=== PATIENT | male | born 1995 | race Caucasian/White ===

== ENCOUNTER 2022-09-12 10:01 | Emergency (ER) | payer OTHER, SELFPAY ==
[2022-09-12 10:09] VITALS: BP 129/59; PULSE 75; RESP 18; TEMP 36.9; O2SAT 99; BMI 32.6
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
== END 2022-09-12 12:00 | disposition home or self-care (01) ==
PROVIDERS: Emergency Provider Student in an Organized Health Care Education/Training Program
DX: H93.12 Tinnitus, left ear (principal); H92.02 Otalgia, left ear
CPT/HCPCS: 99282

== ENCOUNTER 2022-11-02 06:04 | Emergency (ER) | payer OTHER, SELFPAY ==
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
[2022-11-02 06:08] VITALS: BP 116/78; PULSE 73; RESP 18; TEMP 36.7; O2SAT 97; BMI 33.2
[2022-11-02 06:39] VITALS: BP 105/63; PULSE 72; RESP 17; TEMP 37.1; O2SAT 97
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
[2022-11-02] MEDS: Ibuprofen 800 MG TABLET PO (07:18)
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
== END 2022-11-02 08:26 | disposition home or self-care (01) ==
PROVIDERS: Emergency Provider Emergency Medicine; PCP Internal Medicine
DX: S13.4XXA Sprain of ligaments of cervical spine, initial encounter (principal); M25.512 Pain in left shoulder; M54.2 Cervicalgia; R51.9 Headache, unspecified; R07.89 Other chest pain; V43.52XA Car driver injured in collision with other type car in traffic accident, initial encounter; Y93.9 Activity, unspecified; Y92.410 Unspecified street and highway as the place of occurrence of the external cause; Y99.9 Unspecified external cause status
CPT/HCPCS: 70450; 71046; 72125; 73030; 99283

== ENCOUNTER 2023-10-02 12:52 | Outpatient (REF) | payer OTHER, SELFPAY ==
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
== END 2023-10-02 12:53 | disposition home or self-care (01) ==
LOC: HO.NEURO 12:52
PROVIDERS: PCP Internal Medicine; Visit Provider Nurse Practitioner Family
DX: M54.2 Cervicalgia (principal); R29.898 Other symptoms and signs involving the musculoskeletal system
CPT/HCPCS: 95885; 95910

== ENCOUNTER → 2023-10-02 12:57 | Outpatient (BNV) | payer OTHER, SELFPAY | PROVIDERS: PCP Internal Medicine; Visit Provider Physical Medicine & Rehabilitation | DX: R94.131 Abnormal electromyogram [EMG] (principal) | CPT/HCPCS: 95885; 95910 ==

== ENCOUNTER 2024-10-15 03:26 | Emergency (ER) | payer MEDICAID, SELFPAY ==
--- NOTE | 2024-10-15 | ECG_ITS ---
Test Reason : N/V Blood Pressure : / mmHG Vent. Rate : 063 BPM Atrial Rate : 063 BPM P-R Int : 144 ms QRS Dur : 110 ms QT Int : 402 ms P-R-T Axes : 040 021 005 degrees QTc Int : 411 ms Normal sinus rhythm with sinus arrhythmia Normal ECG No previous ECGs available Referred By: Generic ED Physician Electronically Signed By:IDA ILTTLE MD
[2024-10-15 03:28] VITALS: BP 127/81; PULSE 85; RESP 18; TEMP 36.9; O2SAT 100; BMI 32.8
--- NOTE | 2024-10-15 04:53 | PC.NURSE ---
pt requesting to leave, refusing lab work
== END 2024-10-15 04:58 | disposition left against medical advice (07) ==
PROVIDERS: Emergency Provider Emergency Medicine; PCP Internal Medicine
DX: R11.2 Nausea with vomiting, unspecified (principal); M25.512 Pain in left shoulder; H81.09 Meniere's disease, unspecified ear; Z53.21 Procedure and treatment not carried out due to patient leaving prior to being seen by health care provider
CPT/HCPCS: 93005; 99281; 99283

== ENCOUNTER → 2024-10-15 04:00 | Outpatient (BNV) | payer MEDICAID, SELFPAY | PROVIDERS: Emergency Provider Emergency Medicine; PCP Internal Medicine; Visit Provider Internal Medicine Cardiovascular Disease | DX: R11.2 Nausea with vomiting, unspecified (principal) | CPT/HCPCS: 93010 ==

== ENCOUNTER 2025-06-22 07:56 | Outpatient (AMB) | payer MEDICAID, SELFPAY ==
--- OUTSIDE RECORDS SUMMARY | 2025-06-22 08:01 | XMS_ITS | Clinical Summary ---
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 He was due for a 6-month follow-up image, due to multiple issues and postpone, he comes in today to review findings. No new issues with vision or headache, although he does get left-sided headaches associated with his M ni re's disease. He states in 2020 he started having severe symptoms for M ni re's disease, worked a welding job with loud noises, was vomiting by the end of the day, was getting severe migraines and room spinning. He quit the job which help somewhat but he still has symptoms, at times gets drop attacks where he is sweating and feels unstable. He has in his left ear. He saw ENT in 2022, has follow-up appointment scheduled for May 16. Otherwise no new symptoms noted. 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 Dr. Swift reviewed his imaging, I reviewed imaging with patient on the computer as well. We will get 1 year follow-up brain MRI with without contrast, I asked patient to call if he has any new or concerning symptoms. I also asked that he have ENT notes faxed to the office next month. He has not seen ophthalmology, I recommended he try call [facility] for regular eye exams. All questions answered. Severe obesity (BMI 35.0-39. 9) with comorbidity ([facility] V24, [facility] V28) 07/09/2019 Marijuana abuse 12/10/2015 ADD (attention deficit disorder) 07/20/2013 Overview (01/03/2025): Depression 03/25/2007 Resolved Problems Problem Noted Date Diagnosed Date Resolved Date Failed hearing screening 08/12/2010 Overview (10/14/2024): 10-10 appt audiological assessment mild sensorineural hearing loss below 1000hz in L ear retest recommended with otologic consultation appt 11-[address] Ruff /genetic testing negative /CT Scan negative [id number] ENT- audiogram 6 weeks and if stable every 6 months No amplification at this time Encounters Date Type Department Care Team Description 06/07/2025 Telephone Orthopedic Surgery [facility] [address] [place] [address] [address] [place] [phone] Sugar Cano PA 05/30/2025 Telephone Adult Medicine [address] [phone] Barbara Jordan MD 05/24/2025 Telephone Adult Medicine [address] [phone] Barbara Jordan MD 05/18/2025 Telephone Adult Medicine [address] [phone] Barbara Jordan MD 05/11/2025 8:15 AM EDT Office Visit Adult Medicine [address] [phone] Barbara Jordan MD Tinnitus of left ear (Primary Dx); H/O unilateral orchiectomy; Other fatigue 04/28/2025 1:00 PM EDT Consult Orthopedic Surgery [facility] [address] [facility] [address] [place] [phone] Sugar Cano PA Cubital canal compression syndrome, left (Primary Dx); S/P anterior Bankart repair of left shoulder; Chronic left shoulder pain 04/18/2025 3:15 PM EDT Office Visit Neurosurgery [facility] [address] [facility] [address] [place] [phone] Grisel York PA Pituitary cyst ([facility] V24) (Primary Dx) 04/17/2025 Telephone Adult Medicine [address] [phone] Barbara Jordan MD 03/28/2025 Telephone Adult Medicine [address] [phone] Jennifer Mckeon MA 03/22/2025 Telephone Neurosurgery [facility] [address] [phone] Debbi Kelly MA from Last 3 Months Immunizations Name Administration Dates Next Due DTP 03/07/1997, 6,1995,10/21 DTaP (Infanrix) 6wks to less than 7yo 08/27/1999 OVjD-LEY-ICS (Pentacel) 2mo to less than 5yo 11/29/1996,02/19/1996,1995,10/21 HPV, Quadrivalent 11/01/2012 Hepatitis B Pediatric (Enger ix B; Recombivax HB) to less than 20 yo 05/20/1996,1995,1995 IPV Inactivated polio (Ipol) 6wks and older 1995 Influenza trivalent, 0.5mL, preservative free (Fluarix; FluLaval; Fluzone) ages 6mo and older (Afluria) 3 years and older 07/29/2011,06/27/2010,06/26/2009 MMR, measles mumps and rubel la Live (Priorix; M-M-R II) 12mo and older 08/27/1999,11/29/1996 Meningococcal MCV4P 03/27/2008 OPV 08/27/1999,02/19/1996,1995 PPD Test 05/20/1996 Tdap Tetanus diptheria acell ular pertussis (Boostrix; Adacel) 7yo and older 03/25/2007 Varicella live (Varivax) 12m o and older 03/27/2008,08/12/1996 Surgical History Surgery Date Site/Laterality Comments TYMPANOSTOMY TUBE PLACEMENT 12/10/1997 SHOULDER SURGERY 07/09/2023 Left : left shoulder, SLAP repair ORCHIECTOMY Left torsion OTHER SURGICAL HISTORY Intestinal surgery Medical History Medical History Date Comments Intussusception ([facility] V24 , [facility] V28) surgery ADD (attention deficit disorder) 07/20/2013 10-13 Combined [facility] Behavioral Health Provider Susy Freeman Cannabis abuse Depression 03/25/2007 History of torsion of testis 09/03/2016 Lef t orchiectomy Family History Medical History Relation Name Comments Diabetes Maternal Grandfather Diabetes Paternal Grandfather Relation Name Status Comments Father Alive Maternal Grandfather Mother Alive Paternal Grandfather Social History Tobacco Use Types Packs/Day Years Used Date Smoking Tobacco: Every Day Cigarettes 0.3 9.4 Started: 10/12/2013; Last attempted to quit: 02/23/2023 Smokeless Tobacco: Never Tobacco Cessation:Ready to Q uit: Not Asked; Counseling Given: Not Answered Alcohol Use Standard Drinks/Week Comments No 0 (1 standard drink = 0.6 oz pur e alcohol) Sex and Gender Information Value Date Recorded Sex Assigned at Not on file Legal Sex Male 4:51 AM EST Gender Identity Not on file Sexual Orientation Not on file Obstetrics History Last Filed Vital Signs Vital Sign Reading Time Taken Comments Blood Pressure 104/58 05/11/2025 8:06 AM EDT Pulse 53 05/11/2025 8:06 AM EDT Temperature 35.9 C (96.6 F) 05/11/2025 8:06 AM EDT Respiratory Rate 16 05/11/2025 8:06 AM EDT Oxygen Saturation 97% 05/11/2025 8:06 AM EDT Inhaled Oxygen Concentration - - Weight 104 kg (230 lb 4.8 oz) 05/11/2025 8:06 AM EDT Height 175.3 cm (5' 9 ) 05/11/2025 8:06 AM EDT Body Mass Index 34.01 05/11/2025 8:06 AM EDT Plan of Treatment Upcoming Encounters Date Type Department Care Team (Late st Contact Info) Description 07/05/2025 10:00 AM EDT Consult Endocrinology - [place] [address] [place] [phone] Keyana Sanders MD [address] [place] [address] Health Maintenance Due Date Last Done Comments HPV Vaccines (2 - Male 3-dose series) 11/29/2012 11/01/2012 Hepatitis A Vaccines (1 of 2 - Risk 2-dose series) 2014 Pneumococcal Vaccine: Pediatrics (0 to 5 Years) and At-Risk Patients (6 to 49 Years) (1 of 2 - PCV) 2014 DTaP,Tdap,and Td Vaccines (7 - Td or Tdap) 03/25/2017 03/25/2007, 08/27/1999, 03/07/1997, Additional history exists Cholesterol Screening (Lipid Panel) 11/10/2023 06/07/2015 HIV Screening 11/10/2023 Social Influencers of Health Screening 11/10/2023 Depression Screening 10/12/2024 COVID-19 Vaccine ( season) 2025 Influenza Vaccine (#1) 2025 1, 06/27/2010, 06/26/2009 Hepatitis B Vaccines Completed 05/20/1996, 1995, 1995 HIB Vaccines Completed 11/29/1996, 02/09, 1995, Additional history exists IPV Vaccines Completed 08/27/1999, 11/12, 02/19/1996, Additional history exists MMR Vaccines Completed 08/27/1999, 11/29/1996 Meningococcal ACWY Vaccine Aged Out 03/27/2008 N o longer eligible based on patient's age to complete this topic Varicella Vaccines Aged Out 03/27/2008, 08/12/1996 No longer eligible based on patient's age to complete this topic Hepatitis C Screening Completed 04/13/2019 Meningococcal B Vaccine Aged Out No l onger eligible based on patient's age to complete this topic RSV Immunization Patients Under 20 months Aged Out No longer eligible based on patient's age to complete this topic Procedures Procedure Name Priority Date/Time Associated Diagnosis Comments XR SHOULDER 2+ VIEWS LEFT Routine 04/28/2025 1:49 PM EDT Pain EXTERNAL MRI REPORT Routine 04/10/2025 5 :04 PM EDT HEPATITIS C SCREENING Routine 04/13/2019 LIPID PANEL Routine 06/07/2015 from Last 3 Months or Most Recently Relevant to Health Maintenance Results * XR Shoulder 2+ Views Left (04/28/2025 1:49 PM EDT) Anatomical Region Laterality Modality Upper Extremities, Shoulder Left Comp uted Radiography Narrative 04/28/2025 1:51 PM EDT Date of Visit: 04/28/25 Reason for visit: Left shoulder pain Views: AP, Grashey, Y-view, and Axillary left shoulder Comparison: 05/13/23 Findings: Humeral head appears smooth. Glenohumeral joint space and articular margins are intact. Scapular Y and axillary views show the glenohumeral joint located and centered No unusual calcifications. No fractures/ dislocations noted Impression: Left shoulder: No acute osseous pathology Read by: Sugar Cano PA-C Sugar NAQVI XR PROCEDURES Final Resul t * External MRI Report (04/10/2025 5:04 PM EDT) Anatomical Region Laterality Modality Magnetic Resonan ce Historical Provider MD NAQVI MRI PROCEDURES Final Result * Hepatitis C Screening (04/13/2019) Hepatitis C Screening abstracted us Historical Provider HEALTH MAINTENANCE Final Result * Lipid panel (06/07/2015) LDL/HDL Ratio 3 0 - 4 Triglycerides 110 0 - 150 mg/dL Cholesterol 163 0 - 200 mg/dL HDL 47 >=40 mg/dL LDL Cholesterol 94 0 - 100 mg/dL Blood Venous blood specimen / Unknown us Historical Provider LAB BLOOD ORDERABLES Enma l Result from Last 3 Months or Most Recently Relevant to Health Maintenance Insurance [facility] [employer] Care Teams [employer] Maintenance Worker Relationship Specialty Start Date End Date Barbara Jordan MD [address] [place] [phone] PCP - General Internal Medicine 06/05/15
--- OUTSIDE RECORDS SUMMARY | 2025-06-22 08:01 | XMS_ITS ---
Author Name [facility] Organization Unknown Care Team Organization Name Specialty Phone Email Start Date End Da te [facility] Barbara Jordan Primary Care 03/20/2023 4 [facility] Carlyn Mercado Primary Care 2022 05/30/20 24
[2025-06-22 08:04] VITALS: BP 124/80; PULSE 64; RESP 16; O2SAT 97; BMI 32.5
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
== END 2025-06-22 09:04 | disposition home or self-care (01) ==
LOC: HO.HSM 07:57
PROVIDERS: PCP Internal Medicine; Visit Provider Nurse Practitioner
DX: R42 Dizziness and giddiness (principal); G43.109 Migraine with aura, not intractable, without status migrainosus
CPT/HCPCS: 99204

== ENCOUNTER → 2025-06-22 07:56 | Outpatient (BNVA) | payer OTHER, SELFPAY | PROVIDERS: PCP Internal Medicine; Visit Provider Nurse Practitioner | DX: R42 Dizziness and giddiness (principal); G43.109 Migraine with aura, not intractable, without status migrainosus | CPT/HCPCS: 99202 ==

== ENCOUNTER → 2025-07-18 09:15 | Outpatient (BNV) | payer OTHER, SELFPAY | PROVIDERS: PCP Internal Medicine; Visit Provider Psychiatry & Neurology Neurology | DX: G56.22 Lesion of ulnar nerve, left upper limb (principal) | CPT/HCPCS: 95886; 95910 ==

== ENCOUNTER 2025-07-18 09:17 | Outpatient (REF) | payer OTHER, SELFPAY ==
--- NOTE | 2025-07-18 | EMG_ITS ---
Chief complaint: Pain left upper extremity, lesion of left ulnar nerve Reason for referral: Cubital canal compression syndrome, left Referred by:?Sugar Cano Procedure done: Left upper extremity NCS/EMG Description: Left median and ulnar motor studies were performed. Left median and ulnar mixed sensory, median and lateral antecubital brachial sensory, radial sensory, and dorsal cutaneous ulnar studies were performed. EMG needle examination was performed. Other than somewhat reduced amplitude of dorsal cutaneous response, no abnormality was noted. Impression: Mild left ulnar dorsal sensory neuropathy, which probably would not explain patient's symptoms. CADEN
--- OUTSIDE RECORDS SUMMARY | 2025-07-18 10:18 | XMS_ITS | Clinical Summary ---
Author Organization [facility] [address] [facility] Address [address] [place] [address] Phone Care Team Providers Care Emissions Testing Technician Name Role Phone Barbara Jordan MD Primary Care Provider [phone] Allergies No known active allergies Medications No known medications Active Problems Problem Noted Date Diagnosed Date Meniere's disease of both ears 01/04/2025 Pituitary cyst ([facility] V24) 12/04/2023 Overview (01/03/2025): Assessment & Plan [...] seen ophthalmology, I recommended he try call [facility] for regular eye exams. All questions answered. Severe obesity (BMI 35.0-39. 9) with comorbidity ([facility] V24, [facility] V28) 07/09/2019 Marijuana abuse 12/10/2015 ADD (attention [...] Encounters Date Type Department Care Team Description 07/05/2025 10:00 AM EDT Consult Endocrinology [address] [phone] Keyana Sanders MD Low testosterone 06/07/2025 Telephone Orthopedic Surgery [facility] [address] [place] [address] [address] [place] [phone] Sugar Cano PA 05/30/2025 Telephone Adult Medicine [address] [phone] Barbara Jordan MD 05/24/2025 Telephone Adult Medicine [address] [phone] Barbara Jordan MD 05/18/2025 Telephone Adult Medicine [address] [phone] Barbara Jordan MD 05/11/2025 8:15 AM EDT Office Visit Adult [address] [phone] Barbara Jordan MD Tinnitus of left ear (Primary Dx); H/O unilateral orchiectomy; Other fatigue 04/28/2025 1:00 PM EDT Consult Orthopedic Surgery - [place] [address] [facility] 160 [place] [phone] Sugar Cano PA Cubital canal compression syndrome, left (Primary Dx); S/P anterior Bankart repair of left shoulder; Chronic left shoulder pain 04/18/2025 3:15 PM EDT Office Visit Neurosurgery [facility] 175 [facility] 300 [place] [phone] Grisel York PA Pituitary cyst ([facility] V24) (Primary Dx) 04/17/2025 Telephone Adult Medicine [address] [phone] Barbara Jordan MD from Last 3 Months Immunizations Immunization Administration Dates Next Due DTP 03/07/1997, 6,1995,10/21 DTaP (Infanrix) 6wks to less than 7yo 08/27/1999 [id number] (Pentacel) 2mo to less than 5yo 11/29/1996,02/19/1996,1995,10/21 [...] Medical History Medical History Date Comments Intussusception ([facility] V24 , [facility] V28) surgery ADD (attention deficit disorder) 07/20/2013 10-13 Combined [facility] Behavioral Health Provider Susy Freeman Cannabis [...] Sign Reading Time Taken Comments Blood Pressure 112/61 07/05/2025 10:00 AM EDT Pulse 68 07/05/2025 10:00 AM EDT Temperature 35.9 C (96.6 F) 05/11/2025 8:06 AM EDT Respiratory Rate 12 07/05/2025 10:00 AM EDT Oxygen Saturation 97% 05/11/2025 8:06 AM EDT Inhaled Oxygen Concentration - - Weight 110 kg (242 lb) 07/05/2025 10:00 AM EDT Height 175.3 cm (5' 9 ) 07/05/2025 10:00 AM EDT Body Mass Index 35.74 07/05/2025 10:00 AM EDT Plan of Treatment Health Maintenance Due Date Last Done Comments [...] Influenza Vaccine (#1) 2025 1, 06/27/2010, 06/26/2009 RSV Immunization Adult Patients (1 - 1-dose 75+ series) 2070 Hepatitis B Vaccines Completed 05/20/1996, 1995, 1995 [...] LEFT Routine 04/28/2025 1:49 PM EDT Pain HEPATITIS C SCREENING Routine 04/13/2019 LIPID PANEL [...] pathology Read by: Sugar Cano PA-C Sugar MADRIGAL IMG XR PROCEDURES Final Resul t * Hepatitis C Screening (04/13/2019) Hepatitis C Screening abstracted Historical Provider HEALTH MAINTENANCE Final Result * Lipid panel (06/07/2015) LDL/HDL Ratio 3 0 - 4 Triglycerides 110 0 - 150 mg/dL Cholesterol 163 0 - 200 mg/dL HDL 47 >=40 mg/dL LDL Cholesterol 94 0 - 100 mg/dL Blood Venous blood specimen / Unknown Historical Provider LAB BLOOD ORDERABLES Enma l Result from Last 3 Months or Most Recently Relevant to Health Maintenance Insurance [facility] [place] [address] Care Teams Emissions Testing Technician Relationship Specialty Start Date End Date Barbara Jordan MD [address] [place] [address] PCP - General Internal Medicine 06/05/15
== END 2025-07-18 09:18 | disposition home or self-care (01) ==
LOC: HO.NEURO 09:17
PROVIDERS: PCP Internal Medicine; Visit Provider Physician Assistant
DX: G56.22 Lesion of ulnar nerve, left upper limb (principal)
CPT/HCPCS: 95886; 95910

== ENCOUNTER 2025-08-07 08:19 | Outpatient (AMB) | payer OTHER, SELFPAY ==
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
[2025-08-07 08:35] VITALS: BP 130/82; PULSE 60; RESP 16; O2SAT 97; BMI 32.5
--- OUTSIDE RECORDS SUMMARY | 2025-08-07 08:38 | XMS_ITS | Clinical Summary ---
Author Organization [facility] [address] [facility] Address [address] [place] [address] Phone Care Team Providers Care Spotlight Operator Name Role Phone Barbara Jordan MD Primary Care Provider [phone] Allergies No known active allergies Medications No known medications Active Problems Problem Noted Date Diagnosed Date Meniere's disease of both ears 01/04/2025 Pituitary cyst ([facility] V24) 12/04/2023 Overview (01/03/2025): Assessment & [...] seen ophthalmology, I recommended he try call [facility] for regular eye exams. All questions answered. Severe obesity (BMI 35.0-39. 9) with comorbidity ([facility] V24, [facility] V28) 07/09/2019 Marijuana abuse 12/10/2015 ADD [...] Encounters Date Type Department Care Team Description 08/04/2025 Results Follow-Up Adult [address] [phone] Barbara Jordan MD 08/03/2025 10:30 AM EDT Office Visit [address] [phone] Barbara Jordan MD Positive urine drug screen (Primary Dx); Encounter for long-term (current) use of high-risk medication 07/28/2025 Telephone Adult [address] [phone] Amena Santana RN 07/05/2025 10:00 AM EDT Consult Endocrinology - [address] [phone] Keyana Sanders MD Low testosterone 06/07/2025 Telephone Orthopedic Surgery [facility] [address] [facility] 160 [place] [address] Sugar Cano PA 05/30/2025 Telephone Adult Medicine [address] [phone] Barbara Jordan MD 05/24/2025 Telephone Adult Medicine [address] [phone] Barbara Jordan MD 05/18/2025 Telephone Adult Medicine [address] [phone] Barbara Jordan MD 05/11/2025 8:15 AM EDT Office Visit Adult [address] [phone] Barbara Jordan MD Tinnitus of left ear (Primary Dx); H/O unilateral orchiectomy; Other fatigue from Last 3 Months Immunizations Immunization Administration Dates Next Due DTP 03/07/1997, 6,1995,10/21 DTaP (Infanrix) 6wks to less than 7yo 08/27/1999 OApI-NWF-PVT (Pentacel) 2mo to less than 5yo 11/29/1996,02/19/1996,1995,10/21 [...] Medical History Medical History Date Comments Intussusception ([facility] V24 , [facility] V28) surgery ADD (attention deficit disorder) 07/20/2013 10-13 Combined [facility] Behavioral Health Provider Susy Freeman Cannabis abuse [...] Pressure 112/61 07/05/2025 10:00 AM EDT Pulse 66 08/03/2025 10:38 AM EDT Temperature 36.2 C (97.2 F) 08/03/2025 10:38 AM EDT Respiratory Rate 16 08/03/2025 10:38 AM EDT Oxygen Saturation 97% 08/03/2025 10:38 AM EDT Inhaled Oxygen Concentration - - Weight 104 kg (230 lb) 08/03/2025 10:38 AM EDT Height 174 cm (5' 8.5 ) 08/03/2025 10:38 AM EDT Body Mass Index 34.46 08/03/2025 10:38 AM EDT Plan of Treatment Upcoming Encounters Date Type Department Care Team (Late st Contact Info) Description 08/08/2025 8:00 AM EDT Consult Orthopedic Surgery - [place] [address] [facility] [address] [place] [address] Susana Nguyen PA [address] [place] [phone] 08/17/2025 11:00 AM EST Office Visit Walk-In Clinic - [address] [phone] Ji Freitas MD [address] [place] [phone] Health Maintenance Due Date Last Done Comments [...] 11/10/2023 Depression Screening 10/12/2024 COVID-19 Vaccine ( - season) 2025 Influenza Vaccine (#1) 2025 1, [...] Procedure Name Priority Date/Time Associated Diagnosis Comments DRUG ABUSE SCREEN EXPANDED WITH REFLEX CONFIRMATION, URINE Routine 08/03/2025 11:35 AM EDT Positive urine drug screen Encounter for long-term (current) use of high-risk medication HEPATITIS C SCREENING Routine 04/13/2019 LIPID PANEL Routine 06/07/2015 from Last 3 Months or Most Recently Relevant to Health Maintenance Results * Drug abuse screen expanded with reflex confirmation, urine (08/03/2025 11:35 AM EDT) Amphetamine Screen, Ur Negative Negative LAB CHEMISTRY METHOD 08/03/2025 4:59 PM EDT [facility] Comment:Certain OTC medicati ons containing ephedrine, phenylephrine, pseudoephedrine and phenylpropanolamine can cause false positive results. Barbiturate Screen, Ur Negative Negative LAB CHEMISTRY METHOD 08/03/2025 4:59 PM EDT [facility] Benzodiazepine Screen, Ur Negative Negative LAB CHEMISTRY METHOD 08/03/2025 4:59 PM EDT [facility] Cocaine Screen, Ur Negative Negative LAB CHEMISTRY METHOD 08/03/2025 4:59 PM EDT [facility] Opiate Screen, Ur Negative Negative LAB CHEMISTRY METHOD 08/03/2025 4:59 PM EDT [facility] Cannabinoid (THC) Screen, Ur Negative Negative LAB CHEMISTRY METHOD 08/03/2025 4:59 PM EDT [facility] Comment:Specimens from patie nts taking pantoprazole sodium (Protonix) have been shown to produce false positive results. Fentanyl, Ur Negative Negative LAB CHEMISTRY METHOD 08/03/2025 4:59 PM EDT [facility] Oxycodone Screen, Ur Negative Negative LAB CHEMISTRY METHOD 08/03/2025 4:59 PM EDT [facility] Urine Urine specimen obtained by clean catch procedure / Unknown Non-blood Collection / Unknown 08/03/2025 11:35 AM EDT 08/03/2025 11:35 AM EDT Narrative [facility] - 08/03/2025 4:59 PM EDT Assay cutoffs: Amphetamines 1000 ng/mL Barbiturates 200 ng/mL Benzodiazepines 200 ng/mL Cocaine 300 ng/mL Fentanyl 1 ng/mL Opiates 300 ng/mL Oxycodone 100 ng/mL THC 50 ng/mL Semi-quantitative assay for screening purposes only. Unconfirmed screening result should not be used for non-medical purposes. *POSITIVE RESULTS ARE AUTOMATICALLY SENT FOR ALTERNATE METHOD CONFIRMATION* Barbara Joradn MD LAB URINE ORDERABLES Final Resul t [facility] [address] [place] [address], * Hepatitis C Screening (04/13/2019) Pathologist [facility] Hepatitis C Screening abstracted Cesar Provider HEALTH MAINTENANCE Final Result * Lipid panel (06/07/2015) Pathologist [facility] LDL/HDL Ratio 3 0 - 4 Triglycerides 110 0 - 150 mg/dL Cholesterol 163 0 - 200 mg/dL HDL 47 >=40 mg/dL LDL Cholesterol 94 0 - 100 mg/dL Blood Venous blood specimen / Unknown us Historical Provider LAB BLOOD ORDERABLES Enma l Result from Last 3 Months or Most Recently Relevant to Health Maintenance Insurance [facility] [employer] Care Teams Spotlight Operator Relationship Specialty Start Date End Date Barbara Jordan MD [address] [place] [address] PCP - General Internal Medicine 06/05/15
--- OUTSIDE RECORDS SUMMARY | 2025-08-07 08:38 | XMS_ITS | Encounter Summary ---
Author Organization [facility] Address [address] [place] [address] Care Team Providers Care [employer] Glazer Name Role Phone Barbara Jordan MD Primary Care Provider [phone] Encounter Details Date Type Department Care Team (Late Contact Info) Description 08/04/2025 Results Follow-Up Adult Medicine [facility] [address] [place], [place] [phone] Barbara Jordan MD [address] [place], [place] Social History Tobacco Use Types Packs/Day Years Used Date Smoking Tobacco: Every Day Cigarettes 0.3 9.4 Started: 10/12/2013; Last attempted to quit: 02/23/2023 Smokeless Tobacco: Never Alcohol Use Standard Drinks/Week Comments No 0 (1 standard drink = 0.6 oz pur e alcohol) Sex and Gender Information Value Date Recorded Sex Assigned at Not on file Legal Sex Male 4:51 AM EST Gender Identity Not on file Sexual Orientation Not on file documented as of this encounter Plan of Treatment Upcoming Encounters Date Type Department Care Team (Late st Contact Info) Description 08/08/2025 8:00 AM EDT Consult Orthopedic Surgery - [address] [place] [address] Susana Nguyen, KAITLIN [address] [place] [phone] 08/17/2025 11:00 AM EST Office Visit [facility] [address] [place], [place] [phone] Ji Freitas MD [address] [place], [place] documented as of this encounter Visit Diagnoses Not on filedocumented in this encounter Care Teams [employer] Relationship Specialty Start Date End Date Barbara Jordan MD [address] [place] [address] PCP - General Internal Medicine 06/05/15 documented as of this encounter
== END 2025-08-07 09:01 | disposition home or self-care (01) ==
LOC: HO.HSM 08:19
PROVIDERS: PCP Internal Medicine; Visit Provider Nurse Practitioner
DX: R42 Dizziness and giddiness (principal); G43.109 Migraine with aura, not intractable, without status migrainosus
CPT/HCPCS: 99214

== ENCOUNTER → 2025-08-07 08:19 | Outpatient (BNVA) | payer OTHER, SELFPAY | PROVIDERS: PCP Internal Medicine; Visit Provider Nurse Practitioner | DX: Z71.2 Person consulting for explanation of examination or test findings (principal); R42 Dizziness and giddiness; G43.109 Migraine with aura, not intractable, without status migrainosus; E23.6 Other disorders of pituitary gland | CPT/HCPCS: 99212 ==

== ENCOUNTER 2025-08-25 08:22 | Outpatient (REF) | payer OTHER, SELFPAY ==
--- NOTE | 2025-08-25 | EEG_ITS ---
Reason for Exam: R42 Dizziness and giddiness Roomed Performed:?402 History: Vestibular migraine, He is experiencing profound vertigo as well as headaches to the left side of his head. He does also follow with Neurosurgery for history of pituitary cyst which has been stable according to documentation though last MRI was incomplete. Medication: Technical description:? Photic stimulation: Yes Hyperventilation:?Yes Behavioral state: Cooperative persistent movement State of Consciousness: Awake Skull defect: None Sedation: None Handedness: Right Duration of study:? 30min ? ?5sec Description: this is a 16 channel EEG with an EKG lead. Patient is reported awake during the tracing. Background EEG rhythm is mixed theta beta 5-50 microvolt posteriorly and lower amplitude fast anteriorly. Photic stimulation does not produce any significant driving. Hyperventilation is unremarkable. Cardiac lead does not reveal any significant abnormality. No sharp wave spikes or paroxysmal tendency noted. Impression: Mild slowing with no evidence of seizure disorder MTDD
--- OUTSIDE RECORDS SUMMARY | 2025-08-25 08:35 | XMS_ITS | Data Portability ---
Author Organization [place] [facility], All[facility] Address [address] [address] Care Team Providers Care Microfilm Clerk Name Role Phone MONTEZALEE Primary Care Provider [phone] Assessment Encounter Date Assessment Date Assessment LastModified by Organization Details LastModified Time 05/16/2025 05/16/2025 After thorough reassessment of patient's symptoms, I reaffirmed that his constellation of symptoms are not consistent with M ni re's disease. His more pervasive neurological symptoms are likely to represent some sort of centrally acting phenomenon such as chronic migraine with vestibular migraine components. Patient also exhibiting signs of anxiety/depression . Furthermore patient may have some other neurologic or memory disturbance issue that could be contributing to his symptoms. Overall, I would recommend a full neurological and/or neuropsychiatric workup to further delineate his symptoms, as it is clearly not an isolated inner ear issue causing his pervasive symptomatology. Furthermore, the presence of the pituitary abnormality likely warrants a full endocrinologic workup, as this could be an exacerbating factor for his pervasive symptoms. I have asked him to speak with his primary care physician about arranging these consultations. In light of his exacerbation of symptoms in the hand sewer shoes, there is a chance that some of his symptoms could be related to undiagnosed obstructive sleep apnea, so I have recommended sleep study. We will order this study and contact him with the results either over the portal or over telehealth visit. Not available 05/16/2025 10:12:09 Plan of Treatment Reminders Order Date Submit Date Provider Last Modified By Organization Details Last Modified Time Details Appointments None recorded. Lab None recorded. Referral None recorded. Procedures polysomnogr aphy (PROC) 2024 025 [email or web address] [facility], [address] [place] [address], [address], 16:11:51 Surgeries None recorded. Imaging None recorded. Medication Orders None recorded. Patient TargetsNo targets recorded. Patient InstructionsNo instructions recorded. Reason for Referral None Reported. Results Created Date Observation Date Name Description Value Unit Range Abnormal Flag Note LastModifiedBy Organization Detail LastModifiedTime 05/16/20 audio gram No observ ation record ed. BARCODE Not Available 2024 13:10:18 05/16/20 25 04/10/2025 MRI, brain , w/ contr ast No observ ation record ed. [email or web address] Not Available 02/2025 15:37:42 05/16/20 25 02/01/2025 MRI, brain , w/o contr ast No observ ation record ed. [email or web address] Not Available 02/2025 15:38:59 Result Notes None recorded. Problems Name Problem SNOMED Code Status Onset Date Resolution Date Notes Provider Name and Address Organization Details Recorded Time Sensorine ural hearing loss 69141712 Active 2018 Sensorine ural hearing loss, unilatera l, left ear, with unrestric bobbi hearing on the contralat eral side; Note: Date Diagnosed : 9 3:08 PM (H90.42) Not Available [facility] 4 03:13:06 Tinnitus of left ear 52644726445 06 Active 2018 Tinnitus, left ear; Note: Date Diagnosed : 9 3:08 PM (H93.12) Not Available [facility] 4 03:13:07 M ni re's disease 16400789 Active 2020 Meniere's disease, left ear; Note: Date Diagnosed : 07/18/2021 5:39 PM (H81.02) Not Available [facility] 4 03:13:06 Pain of left temporoma ndibular joint 33150591672 095254 Active 2021 Arthralgi a of left temporoma ndibular joint; Note: Date Diagnosed : 09/17/2022 9:58 AM (M26.622) Not Available [facility] 4 03:13:07 Impacted cerumen in left ear 63959208328 33428 Active 2021 Impacted cerumen, left ear; Note: Date Diagnosed : 09/17/2022 9:55 AM (H61.22) Not Available [facility] 4 03:13:06 Otalgia of left ear 4959522289 Active 2021 Otalgia, left ear; Note: Date Diagnosed : 09/17/2022 9:58 AM (H92.02) Not Available [facility] 4 03:13:07 Dizziness and giddiness 240342685 Active 2022 Dizziness and giddiness ; Note: Date Diagnosed : 04/29/2023 5:39 PM (R42) Not Available [facility] 4 03:13:06 Snoring 57063494 Active 2024 THEO ROSADO MD [address] [facility],[place] [address], [place], [address] , [facility] - [facility] 09:19:32 Obesity 476487534 Active 2024 THEO ROSADO MD [address] [place] [address], [place], [address] , 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 - [facility] [place] 5 10:06:30 Pituitary mass 425799413 Active 2024 THEO ROSADO MD [address] [place] [address],[place] [address], [place], [address] , [facility] - [facility] [place] 5 10:06:47 Problem Notes None recorded. Procedures Surgical History Date Name Laterality Status Provider Name and Address Organization Details Recorded Time 05/16/2025 Air & Speech Audio with Tymps - 59864, 13832 & 94582 completed IVY TELLEZ [place], CCC-A [address], [address], [facility] - [facility] 05/16/2025 09:45:33 Imaging Results None recorded. Procedure Notes None recorded. Medical Equipment None Reported. Vitals None Recorded Social History None recorded. Functional Status None recorded. Mental Status None recorded. Family History Nothing Reported. Medical History No medical history recorded. Past Encounters Encounter ID Performer Location Encounter Start Date Encounter Closed Date Diagnosis/Indication Diagnosis SNOMED-CT Code Diagnosis ICD10 Code Diagnosis IMO Codes Diagnosis Note [id number] THEO ROSADO MD [facility] [address] [address] 05/16/2025 08:10:56 05/16/2025 10:11:52 Tinnitus of left ear 7809323018 106 H93.12 Snoring 15318794 R06.83 38133 Sensorineu ral hearing loss 02811357 H90.42 Audiologic al evaluation results:05-16-2025Righ t ear:Normal hearing with excellent word recognitio n.Left ear:Severe -profound SNHL with very poor word recognitio n. Tympanomet ry:Right Ear:Type ALeft Ear:Type A Obesity 325440268 E66.9 50484138 Pituitary mass 470698334 E23.6 261214 Health Concerns Section Related Observation LastModified by Organization Detai ls LastModified Time None Recorded Concern Status LastModified by Organization Details LastModified Time None Recorded Advance Directives Directive None Recorded Payers Insurance Date Sequence Insurance Name Policy Number Policy Cardenas Covered Member ID Cardenas Member ID Guarantor Name 02/20/2025 1 [facility] - HEALTH NET PLAN (MEDICAID HMO) SAI Ritchie [id number] Michael Ritchie 02/20/2025 2 [facility] BENEFIT ADMINISTRATORS - 90 DEGREE BENEFITS - [facility] PROVIDER NETWORK (PPO) Michael Ritchie [id number] Michael Ritchie 05/13/2025 1 [facility] PL[facility] - [facility] (MEDICAID REPLACEMENT - HMO) SAI Ritchie [id number] Michael Ritchie 02/20/2025 1 [place] [facility] Michael Ritchie [id number] Michael Ritchie 02/20/2025 2 [facility] (POS) Michael Ritchie [id number] Michael Ritchie Notes Date Note Type Note Provider Name and Address Organization Details Recorded Time 05/16/2025 text/html 29-year-old male who a evaluated several times in the past, last visit April 2023. Patient has right TMJ causing periauricular discomfort. In addition patient has sensation of feeling flushed with hot flashes and low-grade sensation of motion and difficulty focusing which was not indicative of an inner ear abnormality such as M ni re's disease or BPPV. We discussed at our last visit back in April 2023 M ni re's disease was not on my differential diagnosis despite Dr. Carballo's assessment as such in 2020, based on his lack of symptoms that would be consistent with this diagnosis.Patient recently pulled over for suspicion of driving while intoxicated. Patient sent [facility] forms requesting that I attest to him having a diagnosis of M ni re's disease, which I declined. Today I reassessed the patient regarding his symptoms. Patient reports a chronic sensation of I cannot think straight , reporting sensation of brain fog and memory loss. He gets hot flash feelings that affects entire body including upper and lower extremities. He has a chronic low-grade sensation of motion sickness . The tinnitus that he has had in his left ear fluctuates in volume and can be quite loud at times. His symptoms of chronic brain fog are present almost all the time. He will also have tended episodes of spinning typically either in the late night or hand sewer shoes, which will then make him feel somewhat poorly for the rest of the day, associated with chills and sweating and sense of disorientation .Pat ient reports having a headache anywhere from 2 to 3 days/week. It typically is left parietal and left retro-orbital pain.Patient does not know if he snores. He has not had a sleep study. THEO ROSADO MD [address] [place] [address], [phone], [place] - [facility] 05/16/2025 10:13:09
--- OUTSIDE RECORDS SUMMARY | 2025-08-25 08:35 | XMS_ITS | Clinical Summary ---
Author Organization [facility] [address] [place] [address] [place] [address] Phone Care Team Providers Care Talent Acquisition Assistant Name Role Phone Barbara Jordan MD Primary Care Provider [phone] Allergies No known active allergies Medications No known medications Active Problems Problem Noted Date Diagnosed Date Meniere's disease of both ears 01/04/2025 Pituitary cyst ([facility] V24) 12/04/2023 Overview (01/03/2025): Assessment & Plan [...] seen ophthalmology, I recommended he try call [facility] for regular eye exams. All questions answered. Severe obesity (BMI 35.0-39. 9) with comorbidity ([facility] V24, [facility] V28) 07/09/2019 Marijuana abuse 12/10/2015 ADD (attention [...] Encounters Date Type Department Care Team Description 08/17/2025 11:00 AM EST Office Visit Suboxone [facility] [address] [place] [phone] Ji Freitas MD Hx of substance abuse ([facility] V24, [facility] V28) (Primary Dx) 08/08/2025 8:00 AM EDT Consult Orthopedic Surgery - [facility] [address] [place] [phone] Susana Nguyen PA Left hand pain (Primary Dx); Left elbow pain 08/04/2025 Results Follow-Up [address] [phone] Barbara Jordan MD 08/03/2025 10:30 AM EDT Office Visit Adult Medicine [address] [phone] Barbara Jordan MD Positive urine drug screen (Primary Dx); Encounter for long-term (current) use of high-risk medication 07/28/2025 Telephone Adult Medicine [address] [phone] Amena Santana RN 07/05/2025 10:00 AM EDT Consult Endocrinology [address] [phone] Keyana Sanders MD Low testosterone 06/07/2025 Telephone Orthopedic Surgery [facility] [address] [place] [phone] Sugar Cano PA 05/30/2025 Telephone Adult Medicine [address] [phone] Barbara Jordan MD from Last 3 Months Immunizations Immunization Administration Dates Next Due DTP 03/07/1997, 6,1995,10/21 DTaP (Infanrix) 6wks to less than 7yo 08/27/1999 [id number] (Pentacel) 2mo to less than 5yo 11/29/1996,02/19/1996,1995,10/21 [...] Medical History Medical History Date Comments Intussusception ([facility] V24 , [facility] V28) surgery ADD (attention deficit disorder) 07/20/2013 10-13 Combined [facility] [place] Behavioral Health Provider Susy [...] Sign Reading Time Taken Comments Blood Pressure 130/85 08/17/2025 11:08 AM EST Pulse 62 08/17/2025 11:08 AM EST Temperature 37.2 C (98.9 F) 08/17/2025 11:08 AM EST Respiratory Rate 16 08/17/2025 11:08 AM EST Oxygen Saturation 97% 08/17/2025 11:08 AM EST Inhaled Oxygen Concentration - - Weight 99.8 kg (220 lb) 08/08/2025 7:56 AM EDT Height 175.3 cm (5' 9 ) 08/08/2025 7:56 AM EDT Body Mass Index 32.49 08/08/2025 7:56 AM EDT Plan of Treatment Upcoming Encounters Date Type Department Care Team (Late st Contact Info) Description 08/31/2025 4:30 PM EST Office Visit Suboxone - [facility] [address] [place] [phone] Ji Freitas MD [address] [place] [address] 10/09/2025 10:15 AM EST Office Visit Orthopedic Surgery - [facility] [address] [place] [phone] Susana Nguyen PA [address] [place] [phone] Health Maintenance Due Date Last Done Comments [...] Procedure Name Priority Date/Time Associated Diagnosis Comments POC URINE DRUG SCREEN Routine 08/17/2025 11:56 AM EST Hx of substance abuse ([facility] V24, [facility] V28) XR ELBOW 3+ VIEWS LEFT Routine 08/08/2025 8:38 AM EDT Left elbow pain XR HAND 3+ VIEWS LEFT Routine 08/08/2025 8:38 AM EDT Left hand pain DRUG ABUSE SCREEN EXPANDED WITH REFLEX CONFIRMATION, URINE Routine 08/03/2025 11:35 AM EDT Positive urine drug screen Encounter for long-term (current) use of high-risk medication HEPATITIS C SCREENING Routine 04/13/2019 LIPID PANEL Routine 06/07/2015 from Last 3 Months or Most Recently Relevant to Health Maintenance Results * POC Urine Drug Screen (08/17/2025 11:56 AM EST) Amphetamine Screen, Ur POC Negative Negative Barbituates, Ur POC Negative Negative Benzodiazepines, Ur POC Negative Negative Buprenorphine, Ur POC Negative Negative Cocaine, Ur POC Negative Negative MDMA Ur POC Negative Negative Methamphetamine Screen, Ur POC Negative Negative Methadone, Ur POC Negative Negative Opiate Scrn, Ur POC Negative Negative Oxycodone Scrn, Ur POC Negative Negative PCP, Ur POC Negative Negative THC, Ur POC Negative Negative Temperature, Ur POC 96 Urine Urine specimen obtained by clean catch procedure / Unknown 08/17/2025 11:56 AM EST Ji Freitas MD POINT OF CARE TEST ENTER/EDIT OR DERABLES Final Result * XR Elbow 3+ Views Left (08/08/2025 8:38 AM EDT) Anatomical Region Laterality Modality Upper Extremities, Elbow Left Compute d Radiography Narrative 08/08/2025 12:21 PM EDT Date of Visit: 08/08/2025 Reason for visit: Left elbow pain Views: AP, lateral, oblique left elbow Comparison: None Findings: No fracture, dislocation or lytic lesions. No calcifications. There is prominence of the coronoid process seen on lateral. Radiocapitellar and ulnar relationships maintained. Impression: Slight prominence of the coronoid otherwise normal radiograph Susana MADRIGAL IMG XR PROCEDURES Final Resul t * XR Hand 3+ Views Left (08/08/2025 8:38 AM EDT) Anatomical Region Laterality Modality Upper Extremities, Hand Left Computed Radiography Narrative 08/08/2025 12:17 PM EDT Date of Visit: 08/08/2025 Reason for visit: Left hand pain and stiffness Views: AP, lateral, oblique left hand Comparison: None Findings: No fracture, dislocation or lytic lesions. No arthritis. Impression: Normal left hand radiographs Susana MADRIGAL IMG XR PROCEDURES Final Resul t * Drug abuse screen expanded with reflex confirmation, urine (08/03/2025 11:35 AM EDT) Amphetamine Screen, Ur Negative Negative LAB CHEMISTRY METHOD 08/03/2025 4:59 PM EDT [facility] Comment:Certain OTC medicati ons containing ephedrine, phenylephrine, pseudoephedrine and phenylpropanolamine can cause false positive results. Barbiturate Screen, Ur Negative Negative LAB CHEMISTRY METHOD 08/03/2025 4:59 PM EDT [facility] Benzodiazepine Screen, Ur Negative Negative LAB CHEMISTRY METHOD 08/03/2025 4:59 PM EDT [facility] Cocaine Screen, Ur Negative Negative LAB CHEMISTRY METHOD 08/03/2025 4:59 PM EDT [facility] Opiate Screen, Ur Negative Negative LAB CHEMISTRY METHOD 08/03/2025 4:59 PM EDT [facility] Cannabinoid (THC) Screen, Ur Negative Negative LAB CHEMISTRY METHOD 08/03/2025 4:59 PM EDT [facility] Comment:Specimens from patie nts taking pantoprazole sodium (Protonix) have been shown to produce false positive results. Fentanyl, Ur Negative Negative LAB CHEMISTRY METHOD 08/03/2025 4:59 PM EDT [facility] Oxycodone Screen, Ur Negative Negative LAB CHEMISTRY METHOD 08/03/2025 4:59 PM EDT [facility] Urine Urine specimen obtained by clean catch procedure / Unknown Non-blood Collection / Unknown 08/03/2025 11:35 AM EDT 08/03/2025 11:35 AM EDT Narrative [facility] - 08/03/2025 4:59 PM [...] MD LAB URINE ORDERABLES Final Resul t [facility]) [facility] [address] [place] [address], * Hepatitis C Screening (04/13/2019) Pathologist [facility] Hepatitis C Screening abstracted Historical Provider HEALTH [...] Most Recently Relevant to Health Maintenance Insurance [facility] [employer] Care Teams Talent Acquisition Assistant Relationship Specialty Start Date End Date Barbara Jordan MD [address] [place] [phone] PCP - General Internal Medicine 06/05/15
--- OUTSIDE RECORDS SUMMARY | 2025-08-25 08:35 | XMS_ITS | Encounter Summary ---
Author Organization [facility] Address [address] [place] [address] Care Team Providers Care Snow Plow Operator Name Role Phone Barbara Jordan MD Primary Care Provider [phone] Encounter Details Date Type Department Care Team (Late Contact Info) Description 08/04/2025 Results Follow-Up Adult Medicine [facility] [address] [place], [place] [phone] Barbara Jordan MD [address] [place], [place] Social History Tobacco Use Types Packs/Day [...] Encounters Date Type Department Care Team (Late Contact Info) Description 08/31/2025 4:30 PM EST Office Visit Suboxone - [facility] [address] [place], [place] [phone] Ji Freitas MD [address] [place], [place] 10/09/2025 10:15 AM EST Office Visit Orthopedic Surgery - [place] [address] [facility] [address] [place] [phone] Susana Nguyen PA [address] [facility] [address] [place] [phone] documented as of this encounter Visit Diagnoses Not on filedocumented in this encounter Care Teams Snow Plow Operator Relationship Specialty Start Date End Date Barbara Jordan MD [address] [place] [address] PCP - General Internal Medicine 06/05/15 documented as of this encounter
== END 2025-08-25 08:23 | disposition home or self-care (01) ==
LOC: HO.NEURO 08:22
PROVIDERS: PCP Internal Medicine; Visit Provider Nurse Practitioner
DX: R42 Dizziness and giddiness (principal); G43.109 Migraine with aura, not intractable, without status migrainosus
CPT/HCPCS: 95816

== ENCOUNTER → 2025-08-25 08:30 | Outpatient (BNV) | payer OTHER, SELFPAY | PROVIDERS: PCP Internal Medicine; Visit Provider Psychiatry & Neurology Neurology | DX: R42 Dizziness and giddiness (principal) | CPT/HCPCS: 95816 ==